=== PATIENT | male | born 1985 | race Hispanic/Latino ===

== ENCOUNTER 2022-06-18 13:45 | Emergency (ER) | payer OTHER ==
[~2022-06-18] VITALS: Ht 170.2 cm; Wt 117.9 kg
[2022-06-18 15:39] VITALS: BP 173/99
== END 2022-06-18 15:40 | disposition home or self-care (01) ==
LOC: EDH 13:45
DX: S93.692A Other sprain of left foot, initial encounter (principal); M79.672 Pain in left foot; I10 Essential (primary) hypertension; Z90.49 Acquired absence of other specified parts of digestive tract; W19.XXXA Unspecified fall, initial encounter; Y93.89 Activity, other specified; Y92.89 Other specified places as the place of occurrence of the external cause; Y99.8 Other external cause status
CPT/HCPCS: 73590; 73620

== ENCOUNTER 2024-08-09 23:44 | Emergency (ER) | payer SELFPAY ==
[~2024-08-09] VITALS: Ht 170.2 cm; Wt 131.5 kg
--- NOTE | 2024-08-10 00:05 | ERN ---
ED Note History of Present Illness Stated Complaint: NOSE BLEED Chief Complaint: Nosebleed Time Seen by MD: 23:59 Time Seen by Midlevel: 00:03 Dictation: Mr. Tinsley is a 39-year-old gentleman with history of morbid obesity and hypertension who presented to the emergency department this morning for evaluation of nosebleed. States that at around 2300 he was at work when he developed a headache which he rated 3/10. Shortly after this he began to bleed from his right naris. Epistaxis continued at triage and nose clip was applied. Initial blood pressure 217/115 with heart rate 115. He denies history of similar symptoms. He denies use of alcohol or recreational drugs. He states that he did run out of his antihypertensive medication sometime in April. He denies fever, chills, shortness of breath, cough, chest pain, palpitations, edema, abdominal pain, nausea, vomiting, hematemesis, constipation, diarrhea, melena, hematochezia, dysuria, headache, dizziness, or focal weakness/paresthesia Allergies: Coded Allergies: No Known Drug Allergies (Verified Allergy, 06/02/12) Emergency Care RIGHT OF WAY BUYER: None Home Meds Active Scripts Losartan Potassium (Losartan Potassium) 50 Mg Tablet, 1 TAB PO DAILY for 30 Days, #30 TAB 0 Refills Prov:TABITHA BAJWA NP 08/10/24 Amoxicillin/Potassium Clav (Amox Tr-K Clv 875-125 mg Tab) 875 Mg-125 Mg Tablet, 1 TAB PO BID for 7 Days, #14 TAB 0 Refills Prov:TABITHA BAJWA NP 08/10/24 Metformin HCl (Metformin HCl) 500 Mg Tablet, 500 MG PO DAILY for 30 Days, #30 TAB 0 Refills Prov:TABITHA BAJWA NP 08/10/24 Past Medical History Past Medical History: Hypertension Surgical History: Cholecystectomy RN Note Reviewed/Agreed w/PFSH: Yes Review of System Dictation REVIEW OF SYSTEMS: CONSTITUTIONAL: Patient denies fevers, chills, sweats and weight changes. EYES: Patient denies any visual symptoms. EARS, NOSE, AND THROAT: No difficulties with hearing. No symptoms of rhinitis or sore throat. Reports bleeding right naris CARDIOVASCULAR: Patient denies chest pains, palpitations, orthopnea and paroxy smal nocturnal dyspnea. Reports elevated blood pressure readings. States he ran out of his antihypertensive medications sometime in April. RESPIRATORY: No dyspnea on exertion, no wheezing or cough. GI: No nausea, vomiting, diarrhea, constipation, abdominal pain, hematochezia or melena. : No urinary hesitancy or dribbling. No nocturia or urinary frequency. No abnormal urethral discharge. MUSCULOSKELETAL: No myalgias or arthralgias. NEUROLOGIC: No chronic headaches, no seizures. Patient denies numbness, tingling or weakness. Reported headache 05/05. PSYCHIATRIC: Patient denies problems with mood disturbance. No problems with anxiety. ENDOCRINE: No excessive urination or excessive thirst. DERMATOLOGIC: Patient denies any rashes or skin changes. Initial Vital Sign VS Vital Signs Date Time Temp Pulse Resp B/P (MAP) Pulse Ox O2 Delivery O2 Flow Rate FiO2 08/09/24 23:45 98.1 115 20 217/114 97 Room Air 08/09/24 23:54 0 21 Physical Exam Dictation Vital signs: Reviewed. Afebrile. Constitutional: No acute distress. Slight anxiety. Head/Face: Normocephalic, atraumatic. Eyes: Periorbital areas with no swelling, redness, or edema. Lids and lashes are normal. Conjunctival injection is absent. Sclera anicteric. Pupils equal, round, reactive to light. ENT: Pinnas intact and no signs of trauma or erythema. Ear canals clear and no discharge. TMs no erythema. Oropharynx with no exudate, redness, swelling, masses, exudates, or evidence of obstruction. Uvula midline. Mucous membranes moist. Nasal clip in place; bleeding controlled. Neck: Trachea midline, no masses palpated, and no cervical lymphadenopathy. No swelling. Supple, full range of motion. Chest/Axilla: No tenderness, no crepitus, no paradoxical movement, no retractions. Cardiovascular: Regular rate, regular rhythm, no murmur, no gallops. Symmetric pulses. No peripheral edema. Twelve lead EKG reflects a sinus rhythm with unifocal PVC. Initial BP 217/114; repeat 164/120. Respiratory: Respirations even and unlabored. Lung sounds clear; no wheezes, rales or rhonchi. Room air SpO2 99% Gastrointestinal: Obese. No distention is appreciated. Bowel sounds are normal. No mass or organomegaly . There is no tenderness. No rebound. No rigidity. No voluntary or involuntary guarding. No Bob's sign. Neurological: Normal speech, gross motor function intact, gross sensory function intact. No focal weakness/Paresthesia. Musculoskeletal/Extremities: All extremities have full range of motion, no pain or tenderness on palpation. Symmetric pulses. Integumentary: Intact. Skin is normal color, warm and dry. Cap refill less than 2 seconds. Results (Laboratory/Radiology) Laboratory/Radiology Laboratory Tests Test 08/10/24 00:00 08/10/24 00:26 White Blood Count 13.0 K/uL (4.8-10.8) H Red Blood Count 4.98 MIL/uL (4.50-6.20) Hemoglobin 13.7 g/dL (14.0-18.0) L Hematocrit 40.1 % (42-54) L Mean Corpuscular Volume 80.5 fL (79-99) Mean Corpuscular Hemoglobin 27.5 pg (27.0-33.0) Mean Corpuscular Hemoglobin Concent 34.2 g/dL (32.0-36.0) Red Cell Distribution Width 12.9 % (11.0-15.5) Platelet Count 303 K/uL (130-400) Mean Platelet Volume 10.7 fL (7.5-10.5) H Immature Granulocyte % (Auto) 0.3 % (0-1) Neutrophils (%) (Auto) 69.8 % (40.0-77.0) Lymphocytes (%) (Auto) 21.9 % (21.0-51.0) Monocytes (%) (Auto) 5.3 % (3.0-13.0) Eosinophils (%) (Auto) 2.1 % (0.0-8.0) Basophils (%) (Auto) 0.6 % (0.0-5.0) Neutrophils # (Auto) 9.1 K/uL (1.8-7.7) H Lymphocytes # (Auto) 2.9 K/uL (1.0-4.8) Monocytes # (Auto) 0.7 K/uL (0.1-1.0) Eosinophils # (Auto) 0.27 K/uL (0.00-0.70) Basophils # (Auto) 0.08 K/uL (0.00-0.20) Absolute Immature Granulocyte (auto 0.04 K/uL (0-1) Nucleated Red Blood Cells 0.0 % (0.0-0.19) Prothrombin Time 11.2 SEC (9.6-11.6) Prothromb Time International Ratio 1.06 (0.85-1.15) Activated Partial Thromboplast Time 26.6 SEC (26.3-35.5) Sodium Level 139 mmol/L (136-145) Potassium Level 3.4 mmol/L (3.5-5.1) L Chloride Level 100 mmol/L (101-111) L Carbon Dioxide Level 30 mmol/L (21-32) Blood Urea Nitrogen 19 mg/dL (7-18) H Creatinine 1.0 mg/dL (0.5-1.3) Glomerular Filtration Rate Calc 99 mL/min (>90) Random Glucose 304 mg/dL (70-105) H Total Calcium 9.0 mg/dL (8.5-10.1) Troponin I High Sensitivity 42 ng/L (4-75) Urine Color YELLOW (YELLOW) Urine Appearance CLEAR (CLEAR) Urine pH 5.5 (5.0-8.0) Urine Specific [place] 1.035 (1.001-1.031) Urine Protein 20 mg/dL (NEGATIVE) H Urine Glucose (UA) >=1000 mg/dL (NEGATIVE) H Urine Ketones 5 mg/dL (NEGATIVE) H Urine Occult Blood NEGATIVE (NEGATIVE) Urine Nitrate NEGATIVE (NEGATIVE) Urine Bilirubin NEGATIVE mg/dL (NEGATIVE) Urine Urobilinogen 0.2 mg/dL (0.2-1.0) Urine Leukocyte Esterase NEGATIVE [place]/uL Urine RBC 0-1 /HPF (0-1) Urine WBC 2-5 /HPF (0-1) H Urine Squamous Epithelial Cells RARE /HPF (0-2) Urine Bacteria None /HPF (None Seen) Urine Hyaline Casts 2-5 /LPF (0-1 /LPF) H Urine Other Casts 3 /LPF (None Seen) Urine Opiates Screen NEGATIVE (NEGATIVE) Urine Barbiturates Screen NEGATIVE (NEGATIVE) Urine Phencyclidine Screen NEGATIVE (NEGATIVE) Urine Amphetamines Screen NEGATIVE (NEGATIVE) Urine Benzodiazepines Screen NEGATIVE (NEGATIVE) Urine Cocaine Screen NEGATIVE (NEGATIVE) Urine Marijuana (THC) Screen NEGATIVE (NEGATIVE) Labs Reviewed?: Yes EKG Comment: EKG Interpretation: Time Reviewed 0001 Ventricular rate: 101 bpm DE Interval: 135 ms QRS duration: [address] segment elevation or depression. Clinical impression: Sinus tachycardia with right bundle branch block EKG Reviewed and interpreted by Dr Pretty Sethi ED Course ED Course Orders Procedure Category Date Status Time Cbc With Differential LAB 08/10/24 Complete 00:06 Basic Metabolic Panel LAB 08/10/24 Complete 00:06 Pt And Ptt LAB 08/10/24 Complete 00:06 12 Lead Ekg Tracing- EKG 08/10/24 Complete Technical 00:06 Troponin I High LAB 08/10/24 Complete Sensitivity 00:06 Drug Screen Urine LAB 08/10/24 Complete 00:06 Urinalysis LAB 08/10/24 Complete W/Microscopic 01:10 0.9%Nacl 1000ml (Ns PHA 08/10/24 Complete 1000ml) 01:30 Diazepam 5 Mg/Ml 2 Ml PHA 08/10/24 Complete Syg (Valium 5 Mg/M 01:30 Oxymetazoline Hcl PHA 08/10/24 Complete [place] (Afrin) 01:30 Amox/Clav 875/125mg PHA 08/10/24 In Process Tab (Augmentin 875-1 02:00 Potassium Chloride PHA 08/10/24 In Process 20meq Er (K-Dur/Klor- 02:00 Current Medications Medications (Trade) Dose Ordered Sig/Giuseppe Route PRN Reason Start Time Stop Time Status Last Admin Dose Admin Amoxicillin/ Clavulanate Potassium (Augmentin 875-125 Tablet) 1 each ONCE ONCE PO 08/10/24 02:00 08/10/24 02:01 08/10/24 01:39 Diazepam (VALium 5 MG/ML 2 ML SYG) 5 mg ONCE ONCE IVP 08/10/24 01:30 08/10/24 01:31 DC 08/10/24 01:18 Oxymetazoline HCl (AFrin) 1 sprays ONCE ONCE EN 08/10/24 01:30 08/10/24 01:31 DC 08/10/24 01:31 Potassium Chloride (K-Dur/Klor-Con 20meq) 40 meq ONCE ONCE PO 08/10/24 02:00 08/10/24 02:01 08/10/24 01:39 Sodium Chloride 1,000 ml @ 0 mls/hr ONCE ONCE IV 08/10/24 01:30 08/10/24 01:31 DC 08/10/24 01:14 Vital Signs Date Time Temp Pulse Resp B/P (MAP) Pulse Ox O2 Delivery O2 Flow Rate FiO2 08/10/24 01:10 98.8 98 20 152/96 99 Room Air* 0 21 08/09/24 23:54 109 20 164/124 99 Room Air* 0 21 08/09/24 23:45 98.1 115 20 217/114 97 Room Air Initial blood pressure 217/114; trending down with most recent 152/96. Patient has been noncompliant and had not taken antihypertensive agents since sometime in April. Bleeding controlled following use of nasal clip and Afrin. Twelve le ad EKG reflects a sinus tachycardia with right bundle-branch block; no ST elevation. Laboratory findings as noted below. UDS negative. UA + glucose and ketones. WBCs 13.0, H/H 13.7/40.1, K3.4, Cl 100, BUN 19, and glucose 304. While in the ED he received doses KCl, Valium, Augmentin, and NS 1000 mL IV as bolus. Discussed with patient importance of follow up with PCP as well as adherence to medication regimen. Medical Decision Making MDM MDM: Differential diagnosis: Epistaxis, drug use, hypertensive emergency Rationale: Tests considered and ordered secondary to shared decision making include: Lab, EKG Previous outside records reviewed: Old ER visits. Risk of complication and/or morbidity or mortality of patient management: None Medications-Per medication reconciliation Need for hospitalization: Patient does not meet criteria for hospitalization. Need for emergency major/minor surgery: No There are no social concerns with this patient. Prescription drug management Prescriptions will include symptomatic care Patient's prior external medical records from other ER visits were reviewed by me as indicated. Prior testing and results from previous visits were reviewed. Prior tests were taken into account with medical decision making and resource utilization, independent historian/historians were used to obtain complete medical history. I independently interpreted the test that were performed, results were reviewed by me and considered findings on radiology if ordered. Medical management and examination interpretation discussions were had by me with other qualified healthcare professionals as indicated for the patient's care. DX & DISP Disposition: Discharge Departure Impression: Primary Impression: Epistaxis Additional Impressions: Hypertension, T2DM (type 2 diabetes mellitus), Sinusitis, Hypokalemia Condition: Stable Scripts Losartan Potassium (Losartan Potassium) 50 Mg Tablet 1 TAB PO DAILY for 30 Days, #30 TAB 0 Refills Prov: MONICATABITHA SHIN Yariel MORENO 08/10/24 Amoxicillin/Potassium Clav (Amox Tr-K Clv 875-125 mg Tab) 875 Mg-125 Mg Tablet 1 TAB PO BID for 7 Days, #14 TAB 0 Refills Prov: MONICATABITHA SHIN Yariel MORENO 08/10/24 Metformin HCl (Metformin HCl) 500 Mg Tablet 500 MG PO DAILY for 30 Days, #30 TAB 0 Refills Prov: HALITABITHA Chadwick Yariel MORENO 08/10/24 Additional Instructions: Been diagnosed with high blood pressure. High blood pressure often as no symptoms but can lead to serious problems over time if untreated. Take antihypertensive medications, losartan, daily as directed. Monitor your blood pressure at home and keep a log. Follow low sodium, heart healthy diet, and maintain healthy weight. Call your doctor return if you experiencing chest pain, shortness of breath, my severe headache, vision changes or blood pressure consistently > 180/120. Your blood glucose reading was 304 today consistent with type 2 diabetes. Focus on balance, low sugar, low carb foods. Stay well hydrated and incorporate regular physical activity. You will need to take metformin 500 mg daily (take with the same meal) You will need to follow up with the primary care physician for monitoring and adjustment of both medications. Use Afrin twice daily x 3 days. Avoid nose blowing, sneezing through the nose, or heavy lifting. Sleep with the head elevated. You may exp erience mild discomfort or nasal draining which is expected. Seek care immediately if bleeding resumes heavily from the mouth or nose, you develop fever greater than 100.4 or foul-smelling drainage, or have severe facial pain or swelling. Follow up in ER in 48 hours for packing removal. Referrals: SELF,REFERRAL (PCP) Time of Disposition: 01:55 TABITHA BAJWA NP Aug 10, 2024 00:05
--- NOTE | 2024-08-10 00:08 | EKG ---
[facility] Test Date: 2024-08-10 Test Time: 00:01:24 Pat Name: AUTUMN RODRÍGUEZ Department: [facility] Room: Gender: M Block Handler: [id number] : 1985 Requested By: TABITHA BAJWA Order Number: [id number] Reading MD: Basilio Manuel Measurements Intervals [place] Rate: 101 P: 44 OK: 135 QRS: 60 QRSD: 142 T: 19 QT: 410 QTc: 531 Interpretive Statements Sinus tachycardia Right bundle branch block No previous ECG available for comparison Electronically Signed On 08-10-2024 14:43:32 CDT by Basilio Manuel Please click the below link to view image of tracing.
[2024-08-10 00:34] LABS: INR 1.06 (0.85-1.15); PROTHROMBIN TIME 11.2 SEC (9.6-11.6)
[2024-08-10 00:36] LABS: PARTIAL THROMBOPLASTIN TIME 26.6 SEC (26.3-35.5)
[2024-08-10 00:39] LABS: BASOPHILS # (AUTO) 0.08 K/uL (0.00-0.20); BASOPHILS % (AUTO) 0.6 % (0.0-5.0); EOSINOPHILS # (AUTO) 0.27 K/uL (0.00-0.70); EOSINOPHILS % (AUTO) 2.1 % (0.0-8.0); HEMATOCRIT 40.1 % (42-54); IMMATURE GRANULOCYTE ABSOLUTE 0.04 K/uL (0-1); LYMPHOCYTES # (AUTO) 2.9 K/uL (1.0-4.8); LYMPHOCYTES % (AUTO) 21.9 % (21.0-51.0); MEAN CORPUSCULAR HEMOGLOBIN 27.5 pg (27.0-33.0); MEAN CORPUSCULAR HGB CONC 34.2 g/dL (32.0-36.0); MEAN CORPUSCULAR VOLUME 80.5 fL (79-99); MONOCYTES # (AUTO) 0.7 K/uL (0.1-1.0); MONOCYTES % (AUTO) 5.3 % (3.0-13.0); NEUTROPHILS # (AUTO) 9.1 K/uL (1.8-7.7); NEUTROPHILS % (AUTO) 69.8 % (40.0-77.0); PLATELET COUNT (AUTO) 303 K/uL (130-400); POTASSIUM 3.4 mmol/L (3.5-5.1); RED BLOOD CELL COUNT(AUTO) 4.98 MIL/uL (4.50-6.20); RED CELL DISTRIBUTION WIDTH 12.9 % (11.0-15.5)
[2024-08-10 00:42] LABS: AMPHET/METH SCREEN,URINE NEGATIVE (NEGATIVE); BARBITURATE SCREEN, URINE NEGATIVE (NEGATIVE); BENZODIAZEPINES SCREEN,URINE NEGATIVE (NEGATIVE); CANNABINOID SCREEN,URINE NEGATIVE (NEGATIVE); COCAINE SCREEN,URINE NEGATIVE (NEGATIVE); OPIATE SCREEN,URINE NEGATIVE (NEGATIVE); PHENCYCLIDINE SCREEN,URINE NEGATIVE (NEGATIVE)
[2024-08-10] MEDS: 0.9%NACL 1000ML 1,000 ML IV ONE (01:14)
[2024-08-10] MEDS: diazePAM 5 MG/ML 2 ML SYG IVP ONE (01:18)
[2024-08-10 01:22] LABS: APPEARANCE,URINE CLEAR (CLEAR); BILIRUBIN,URINE NEGATIVE (NEGATIVE); COLOR,URINE YELLOW (YELLOW); GLUCOSE, URINE (UA) >=1000 mg/dL (NEGATIVE); KETONES,URINE 5 mg/dL (NEGATIVE); LEUKOCYTE ESTERASE ,URINE NEGATIVE Leu/uL (NEGATIVE); MUCUS,URINE RARE LPF (None Seen); NITRATE,URINE NEGATIVE (NEGATIVE); OCCULT BLOOD,URINE NEGATIVE (NEGATIVE); OTHER CASTS, URINE 3 /LPF (None Seen); PH,URINE 5.5 (5.0-8.0); PROTEIN,URINE 20 mg/dL (NEGATIVE); RBC,URINE 0-1 /HPF (0-1); SQUAMOUS EPITHELIAL CELL,UR RARE /HPF (0-2); UROBILINOGEN,URINE 0.2 mg/dL (0.2-1.0)
[2024-08-10] MEDS ORDERED: METF-444 PO (01:31)
[2024-08-10] MEDS ORDERED: LOSA50TA64 PO (01:31)
[2024-08-10] MEDS: OXYmetazoline HCL SPRAY 100 SPRAYS/15 ML BOTTLE EN ONE (01:31)
[2024-08-10] MEDS ORDERED: AMOX1TAB16 PO (01:31)
[2024-08-10] MEDS: PoTASSium chloRIDE 20MEQ ER 20 MEQ ERTAB PO ONE (01:39)
[2024-08-10] MEDS: AMOX/CLAV 875/125MG TAB PO ONE (01:39)
[2024-08-10 02:29] VITALS: BP 168/93; PULSE 89; RESP 16; TEMP 97.9; O2SAT 98
== END 2024-08-10 02:32 | disposition home or self-care (01) ==
LOC: EDH 23:44
DX: R04.0 Epistaxis (principal); I10 Essential (primary) hypertension; E11.9 Type 2 diabetes mellitus without complications; E87.6 Hypokalemia; J32.9 Chronic sinusitis, unspecified; Z79.84 Long term (current) use of oral hypoglycemic drugs; Z79.899 Other long term (current) drug therapy; Z90.49 Acquired absence of other specified parts of digestive tract
CPT/HCPCS: 99284; 84484; 80048; 80305; 85025; 85610; 85730; 36415; 81001; 96374; 96361; 93005; J7030 ×2; J3360